=== PATIENT | male | born 1970 | race Caucasian/White ===

== ENCOUNTER 2017-05-08 14:44 | Emergency (ER) | payer BC, OTHER ==
[~2017-05-08] VITALS: Ht 180.3 cm; Wt 90.0 kg
[~2017-05-08 14:44] MED LIST: MELO7.5 PO; TRAM50 PO
[2017-05-08 14:49] VITALS: BP 172/79; PULSE 94; RESP 16; TEMP 98.1; O2SAT 98
[2017-05-08] MEDS ORDERED: IBUPROFEN 800 MG TAB PO ONE (15:30)
[2017-05-08] MEDS ORDERED: CIPROFLOXACIN 500 MG TAB PO ONE (15:30)
[2017-05-08] MEDS ORDERED: TETANUS/DIPHTHERIA TOXOID ADULT 0.5 ML VIAL IM ONE (15:30)
[2017-05-08] MEDS ORDERED: CIPR-9 PO (15:41)
[2017-05-08] MEDS ORDERED: IBUP800T23 PO (15:41)
--- NOTE | 2017-05-08 15:47 | PD ---
HPI Chief Complaint: Laceration/Skin Injury Time Seen by Provider: 14:59 Travel History International Travel<30 days: No Contact w/Intl Traveler<30days: No Traveled to known affect area: No History of Present Illness HPI 38-year-old male that presents to the ED for evaluation of nail to the left foot. Per patient he was working on his yard when he stepped on a nail that went through his shoe and into his foot. Patient had immediate pain. Patient able to ambulate with some difficulty. Per patient he is concerned that he is out of his tetanus booster. He states that his pain currently 7 out of 10 especially with touch and with weightbearing. He denies any fevers chills or sweats. Injury occurred less than a couple hours ago. Per patient the nail was fairly new. He states having minimal bleeding. No other issues. No allergies to medication. PFSH Past Medical History Inguinal Hernia: Yes (bilat, repair) Tetanus Vaccination: Unknown Influenza Vaccination: No Past Surgical History Appendectomy: Yes Social History Alcohol Use: No Tobacco Use: No Substance Use: No Allergies-Medications (Allergen,Severity, Reaction): Coded Allergies: No Known Allergies (Unverified , 05/08/17) Reported Meds & Prescriptions Reported Meds & Active Scripts Active Ibuprofen 800 Mg Tab 800 Mg PO Q8H PRN Cipro (Ciprofloxacin HCl) 500 Mg Tab 500 Mg PO BID 7 Days Review of Systems Except as stated in HPI: all other systems reviewed are Neg Physical Exam Narrative GENERAL: SKIN: Warm and dry. HEAD: Atraumatic. Normocephalic. EYES: Pupils equal and round. No scleral icterus. No injection or drainage. ENT: No nasal bleeding or discharge. Mucous membranes pink and moist. NECK: Trachea midline. No JVD. CARDIOVASCULAR: Regular rate and rhythm. RESPIRATORY: No accessory muscle use. Clear to auscultation. Breath sounds equal bilaterally. GASTROINTESTINAL: Abdomen soft, non-tender, nondistended. Hepatic and splenic margins not palpable. MUSCULOSKELETAL: Extremities without clubbing, cyanosis, or edema. No obvious deformities. Full range of motion of the upper and lower extremities bilaterally. Patient does have a very small puncture wound less than 1 mm in diameter on the left foot. Minimal bleeding noted. Slightly tender to touch. No wrist deformity noted. Full range of motion of the toes. Good capillary refill. 2+ pulses bilaterally. NEUROLOGICAL: Awake and alert. No obvious cranial nerve deficits. Motor grossly within normal limits. Five out of 5 muscle strength in the arms and legs. Normal speech. PSYCHIATRIC: Appropriate mood and affect; insight and judgment normal. Data Data Last Documented VS Vital Signs Date Time Temp Pulse Resp B/P (MAP) Pulse Ox O2 Delivery O2 Flow Rate FiO2 05/08/17 14:49 98.1 94 16 172/79 (110) 98 Orders Orders Wound Care (05/08/17 15:20) Ibuprofen (Motrin) (05/08/17 15:30) Tetanus/Diphtheria Tox Adult (Tetanus/Di (05/08/17 15:30) Foot, Complete (Ewy6cap) (05/08/17 15:20) Ciprofloxacin (Cipro) (05/08/17 15:30) MDM Medical Decision Making Medical Screen Exam Complete: Yes Emergency Medical Condition: Yes Medical Record Reviewed: Yes Interpretation(s) X-ray of the left foot show no sign of bony injury or foreign body. Differential Diagnosis Laceration versus puncture wound versus normal exam Narrative Course 38-year-old male that presents to the ED for evaluation of puncture wound to the left foot. Patient was properly examined and was found to have signs and symptoms consistent with puncture wound. Concerning for pseudomonas infection secondary to nail going through the shoe so patient will be given prophylactically Cipro. No signs of active infection here. X-ray was done and show no sign of bony injury or foreign body. Patient was reassured about this. Patient was given tetanus booster. Patient was given prescription for Cipro and ibuprofen. Told to apply ice or warm compresses. Wound care as needed. See ED worsening symptoms. He was given crutches for comfort. Diagnosis Primary Impression: Puncture wound Patient Instructions: General Instructions Additional Instructions: Take medications as prescribed. Follow-up with PCP. See ED for any worsening symptoms. Apply ice or heat as needed for pain Change dressings on your foot daily. Med/Other Pt SpecificInfo: Prescription(s) given Scripts Ibuprofen (Ibuprofen) 800 Mg Tab 800 MG PO Q8H Y for PAIN SCALE 1 TO 10, #20 TAB 0 Refills Prov: Gregorio Rodrigues MD 05/08/17 Ciprofloxacin (Cipro) 500 Mg Tab 500 MG PO BID for Infection for 7 Days, TAB 0 Refills Prov: Gregorio Rodrigues MD 05/08/17 Disposition: 01 DISCHARGE HOME Condition: Stable Hernan Avila May 08, 2017 15:47
--- NOTE | 2017-05-08 15:59 | RADRPT ---
EXAM DATE/TIME: 05/08/2017 15:23 [facility] COMPARISON: No previous studies available for comparison. INDICATIONS : Evaluate for foreign body. Patient stepped on nail. MEDICAL HISTORY : None. SURGICAL HISTORY : Appendectomy. Inguinal hernia repair. ENCOUNTER: Initial ACUITY: 1 day PAIN SCORE: 7/10 LOCATION: Left foot FINDINGS: No definite fractures, or dislocations are identified. No definite lytic or sclerotic lesion is seen . Calcaneal spur is present at the attachment site of the plantar aponeurosis. There is no evidence for a radiopaque foreign body for technique. CONCLUSION: Unremarkable study except for calcaneal spur. Jacinda Lares MD on May 08, 2017 at 15:56 Board Certified Radiologist. This report was verified electronically.
== END 2017-05-08 16:02 | disposition home or self-care (01) ==
LOC: PHEFT 14:44
DX: S91.332A Puncture wound without foreign body, left foot, initial encounter (principal); W45.0XXA Nail entering through skin, initial encounter; Y93.H9 Activity, other involving exterior property and land maintenance, building and construction; Y92.007 Garden or yard of unspecified non-institutional (private) residence as the place of occurrence of the external cause; Z23 Encounter for immunization
CPT/HCPCS: 73630; 90471; 90714